=== PATIENT | male | born 1970 | race Two or more races ===

== ENCOUNTER 2019-07-30 18:21 | Emergency (ER) | payer MEDICAID, OTHER ==
[~2019-07-30] VITALS: Ht 182.9 cm; Wt 90.7 kg
[2019-07-30] MEDS ORDERED: EPINEPHrine HCL 1 MG/10 ML SYRG IV ONE (18:27)
[2019-07-30] MEDS ORDERED: SODIUM BICARBONATE 8.4% INJ 50ML SYRINGE IV ONE (18:27)
[2019-07-30] MEDS ORDERED: ATROPINE SULF 1 MG/10ml SYR IV ONE (18:27)
[2019-07-30] MEDS ORDERED: LIDOCAINE 4MG/ML IV SOLN 500ML BAG IV ONE (18:27)
[2019-07-30] MEDS ORDERED: MAGNESIUM SULF 50% 40 MEQ/10 ML VL IV ONE (18:27)
[2019-07-30] MEDS ORDERED: CALCIUM CHLOR(10%) 100MG/ML 10ML SYRINGE IV ONE (18:27)
[2019-07-30] MEDS ORDERED: AMIODARONE HCL (50 MG/ ML) 3 ML VIAL IV ONE (18:27)
[2019-07-30] MEDS ORDERED: NOREPINEPHRINE 8 MG/250ML KIT 250 ML IV SCH (18:32)
[2019-07-30] MEDS ORDERED: SODIUM BICARBONATE 8.4% INJ 50ML SYRINGE ONE (18:36)
[2019-07-30] MEDS ORDERED: AMIODARONE HCL 900 MG in DEXTROSE 500 ML IV SCH (18:42)
[2019-07-30] MEDS ORDERED: NOREPINEPHRINE 8 MG/250ML KIT 250 ML IV ONE (18:42)
[2019-07-30] MEDS ORDERED: SODIUM BICARBONATE 50ML VIAL 100 ML in SODIUM CHLORIDE 0.9% 1,000 ML IV SCH (18:45)
[2019-07-30] MEDS ORDERED: EPINEPHrine HCL INJECTION 4 MG in SODIUM CHL 0.9% 250 ML IV SCH (18:45)
[2019-07-30] MEDS ORDERED: AMIODARONE HCL 150 MG in D5W 5% 100 ML IV ONE (18:45)
[2019-07-30] MEDS ORDERED: EPINEPHrine HCL 1 MG/10 ML SYRG ONE (18:50)
[2019-07-30 19:10] LABS: Basophils # (auto) 0 uL; Basophils % (auto) 0.5 % (0.0-2.0); Eosinophils # (auto) 0.1 uL; Hematocrit 43.7 % (41.0-53.0); Hemoglobin 14.4 g/dL (13.5-17.5); Lymphocytes # (auto) 3.1 uL; Lymphocytes % (auto) 49.7 % (10.0-50.0); Mean Corpuscular Hemoglobin 33.2 pg (28.0-32.0); Mean Corpuscular Hgb Conc. 32.9 g/dL (32.0-36.0); Mean Corpuscular Volume 100.8 fL (80.0-100.0); Monocytes # (auto) 0.2 uL; Monocytes % (auto) 3.8 % (0.0-12.0); Neutrophils # (auto) 2.8 uL; Nucleated Red Blood Cells % 0.2 %; Platelet Count (auto) 184 10^3/uL (140-450); Red Blood Cells 4.34 10^6/uL (4.5-5.90); Red Cell Distribution Width 13.6 % (11.8-14.3); White Blood Cell 6.3 10^3/uL (4.4-10.8)
[2019-07-30 19:21] LABS: INR 1.04 (0.9-1.15)
[2019-07-30 19:25] LABS: Chloride 102 mmol/L (98-107); Sodium 136 mmol/L (136-145)
[2019-07-30 19:29] LABS: Alanine Aminotransferase 642 U/L (16-61); Albumin 3.2 g/dL (3.4-5.0); Anion Gap 13 (5-15); Aspartate Aminotransferase 476 U/L (15-37); BUN/Creatinine Ratio 8.1; Blood Urea Nitrogen 12 mg/dL (7-18); Calcium 8.6 mg/dL (8.5-10.1); Carbon Dioxide 21 mmol/L (21-32); GFR African American 65 mL/min; GFR Non-African American 54 mL/min; Glucose 296 mg/dL (74-106); Magnesium 2.8 mg/dL (1.6-2.6)
[2019-07-30 19:30] LABS: Lactic Acid w/Reflex 8.9 mmol/L (0.4-2.0)
[2019-07-30 19:31] LABS: Alkaline Phosphatase 155 U/L (45-117); Bilirubin, Total 0.7 mg/dL (0.2-1.0); Total Protein 6.8 g/dL (6.4-8.2)
[2019-07-30 19:49] LABS: Potassium 2.9 mmol/L (3.5-5.1)
[2019-07-31] MEDS ORDERED: AMIODARONE HCL 900 MG in DEXTROSE 500 ML IV SCH (00:42)
--- NOTE | 2019-07-31 10:35 | NUR ---
FAMILY IN TO GLASS CUT OFF TENDER BELONGINGS
== END 2019-07-30 20:18 ==
LOC: EDBD 18:21 → ER 18:26
DX: I46.9 Cardiac arrest, cause unspecified (principal); R42 Dizziness and giddiness; R55 Syncope and collapse
CPT/HCPCS: 36415; 51702; 80053; 83605; 83735; 84484; 85025; 85610; 87040; 87077; 87186; 92950; 99291; J0171; J0282; J2001; J3475; J7050; J7060; 96365